=== PATIENT | female | born 1940 | race African-American/Black ===

== ENCOUNTER 2021-07-25 08:33 | Emergency (ER) | payer MEDICARE ==
[~2021-07-25] VITALS: Ht 162.6 cm; Wt 60.0 kg
[2021-07-25 09:41] LABS: BASOPHILS % 0.9 % (0.0-2.0); EOSINOPHILS % 0.1 % (0.0-5.0); HEMATOCRIT. 37.9 % (36.0-48.0); HEMOGLOBIN. 12.5 g/dL (12.0-16.0); MEAN CORPUSCULAR HEMOGLOBIN 27.1 pg (28.0-32.0); MEAN CORPUSCULAR VOLUME 82.6 fL (81.0-99.0); MEAN PLATELET VOLUME 7.9 fl (7.4-10.4); MONOCYTES % 7.9 % (2.0-8.0); NEUTROPHILS % 66.1 % (40.0-76.0); PLATELET 119 x1000/uL (130-400); RED BLOOD CELL COUNT 4.59 mill/uL (4.2-5.4)
[2021-07-25 09:47] LABS: CHLORIDE 105 mEq/L (98-107)
[2021-07-25 09:50] LABS: ETHANOL BLOOD < 10 mg/dL
[2021-07-25 09:53] LABS: PROTHROMBIN TIME 10.3 sec (9.6-11.0)
[2021-07-25] MEDS ORDERED: ASPIRIN 325MG EC TABLET PO ONE (10:00)
[2021-07-25] MEDS ORDERED: IOHEXOL-350 100 ML BOTTLE ONE (10:03)
[2021-07-25 10:15] LABS: CLARITY URINE CLEAR (CLEAR); COLOR URINE YELLOW (YELLOW); KETONES URINE NEGATIVE (NEGATIVE); LEUKOCYTE ESTERASE URINE NEGATIVE (NEGATIVE); NITRITE URINE NEGATIVE (NEGATIVE); OCCULT BLOOD URINE NEGATIVE (NEGATIVE); PH URINE 7.5 (4.5-8.0); PROTEIN URINE 1+ (NEGATIVE); SPECIFIC GRAVITY URINE 1.055 (1.005-1.030); UROBILINOGEN URINE 0.2 E.U./dL (0.2-1.0)
[2021-07-25 10:26] LABS: *AMPHETAMINES SCREEN URINE NEGATIVE (NEGATIVE); *BARBITURATES SCREEN URINE NEGATIVE (NEGATIVE); *BENZODIAZEPINES SCREEN URINE NEGATIVE (NEGATIVE); CANNABINOID URINE SCREEN NEGATIVE (NEGATIVE); METHADONE URINE SCREEN NEGATIVE (NEGATIVE); PHENCYCLIDINE URINE SCREEN NEGATIVE (NEGATIVE)
[2021-07-25 10:27] LABS: *COCAINE SCREEN URINE NEGATIVE (NEGATIVE); OPIATES URINE SCREEN NEGATIVE (NEGATIVE)
[2021-07-25 10:54] VITALS: BP 187/81
== END 2021-07-25 11:03 | disposition hospice, inpatient (51) ==
LOC: ER 08:40 → EDBEDREQTM 09:59 → EDBEDREQ 09:59 → EDBEDREQSVC 09:59 → ER 11:03 → CANBEDREQ 11:13
DX: U07.1 COVID-19 (principal); I63.9 Cerebral infarction, unspecified; I10 Essential (primary) hypertension; I65.22 Occlusion and stenosis of left carotid artery; E78.00 Pure hypercholesterolemia, unspecified; Z86.73 Personal history of transient ischemic attack (TIA), and cerebral infarction without residual deficits
CPT/HCPCS: 36415; 70450; 70496; 70498; 71045; 80053; 80305; 80320; 81003; 82962; 83605; 83880; 84484; 85025; 85610; 87426; 99285; Q9967; G0480